=== PATIENT | male | born 1985 | race Caucasian/White ===

== ENCOUNTER 2018-10-09 19:44 | Emergency (ER) | payer SELFPAY ==
--- NOTE | 2018-10-09 19:54 | NUR ---
Called to triage no answer.
--- NOTE | 2018-10-09 20:04 | NUR ---
Call to lobby.
== END 2018-10-09 21:44 | disposition left against medical advice (07) ==
LOC: ER 19:45
DX: R51 Headache (principal); Z53.21 Procedure and treatment not carried out due to patient leaving prior to being seen by health care provider